=== PATIENT | male | born 1955 | race African-American/Black ===

== ENCOUNTER 2017-06-19 09:53 | Inpatient (IN) | payer MEDICARE, OTHER ==
[2017-06-19] MEDS: SOD CHLORIDE 0.9% 1,000 ML IV ×2 (11:29→20:09)
[2017-06-19 11:50] LABS: ADD MAN DIFF? NO
[2017-06-19] MEDS: hydrALAzine 20 MG INJ IV (12:12)
[2017-06-19] MEDS: NICARDipine HCL 30 MG CAPSULE PO (12:13)
[2017-06-19 12:16] LABS: WHITE BLOOD COUNT 6.3 10^3/ul (4.8-10.8)
[2017-06-19 12:16] LABS: ALANINE AMINOTRANSFERASE 58 IU/L (13-69); ALBUMIN 4.6 g/dl (3.3-4.9); ALBUMIN/GLOBULIN RATIO 1.35; ALKALINE PHOSPHATASE 88 IU/L (42-121); ANION GAP 17 (8-16); ASPARTATE AMINO TRANSFERASE 65 IU/L (15-46); BASOPHILS % 0.5 % (0.0-2.0); BILIRUBIN,INDIRECT 0.8 mg/dl (0-1.1); BILIRUBIN,TOTAL 0.8 mg/dl (0.2-1.3); BLOOD UREA NITROGEN 16 mg/dl (7-20); CALCIUM 9.3 mg/dl (8.4-10.2); CARBON DIOXIDE 25 mmol/L (21-31); CHLORIDE 107 mmol/L (97-110); CREATININE 1.68 mg/dl (0.61-1.24); EOSINOPHILS # 0.2 10^3/ul (0.0-0.5); GLUCOSE 91 mg/dl (70-220); HEMATOCRIT 45.3 % (42.0-52.0); HEMOGLOBIN 14.9 g/dl (14.0-18.0); LYMPHOCYTES % 16.6 % (15.0-51.0); MEAN CORPUSCULAR HEMOGLOBIN 24.8 pg (29.0-33.0); MEAN CORPUSCULAR HGB CONC 32.9 g/dl (32.0-37.0); MEAN CORPUSCULAR VOLUME 75.2 fl (82.0-101.0); MEAN PLATELET VOLUME 10.2 fl (7.4-10.4); MONOCYTE # 0.7 10^3/ul (0.3-0.9); MONOCYTES % 10.9 % (0.0-11.0); NEUTROPHIL # 4.3 10^3/ul (1.6-7.5); NEUTROPHILS % 68.7 % (39.0-77.0); PLATELET COUNT 241 10^3/UL (140-415); RED BLOOD COUNT 6.02 10^6/ul (4.70-6.10); RED CELL DISTRIBUTION WIDTH 17.9 % (11.5-14.5); SODIUM 145 mmol/L (135-144)
[2017-06-19 12:26] LABS: TROPONIN-I 0.065 ng/ml (0.00-0.12)
[2017-06-19 12:39] LABS: PROTIME 14.4 Sec (11.9-14.9); PT RATIO 1.1
[2017-06-19 12:40] LABS: PARTIAL THROMBOPLASTIN TIME 36.8 Sec (25.0-35.0)
[2017-06-19] MEDS ORDERED: ACETAMINOPHEN 325 MG TAB PO ×2 (13:30→14:00)
[2017-06-19] MEDS ORDERED: ONDANSETRON 4 MG INJ IV (13:30)
[2017-06-19] MEDS: DILTIAZEM-D5W 125MG/125ML DRIP 125 ML IV (13:57)
[2017-06-19 14:49] LABS: HEMOGLOBIN A1C 5.6 % (0-5.9)
[2017-06-19 15:01] LABS: CREATINE KINASE 395 IU/L (23-200)
[2017-06-19 15:02] LABS: ALANINE AMINOTRANSFERASE 59 IU/L (13-69); ALBUMIN 3.4 g/dl (3.3-4.9); ALKALINE PHOSPHATASE 67 IU/L (42-121); ASPARTATE AMINO TRANSFERASE 49 IU/L (15-46); BILIRUBIN,INDIRECT 0.7 mg/dl (0-1.1); BILIRUBIN,TOTAL 0.7 mg/dl (0.2-1.3); CHOL/HDL RATIO 2.6 RATIO; CHOLESTEROL 116 mg/dl (100-200); HDL CHOLESTEROL 44 mg/dl (30-78); LDL CHOLESTEROL,CALCULATED 57 mg/dl; MAGNESIUM 1.9 mg/dl (1.7-2.5); TOTAL PROTEIN 6.3 g/dl (6.1-8.1); TRIGLYCERIDES 73 mg/dl (0-149)
[2017-06-19 15:13] LABS: CK-MB 4.06 ng/ml (0.0-2.4); TROPONIN-I 0.057 ng/ml (0.00-0.12)
[2017-06-19 15:32] LABS: THYROID STIMULATING HORMONE 0.113 MIU/L (0.465-4.680)
[2017-06-19] MEDS: DOCUSATE SODIUM 100 MG CAP PO (17:02)
[2017-06-19] MEDS: LISINOPRIL 20 MG TAB PO (17:03)
[2017-06-19] MEDS: METOPROLOL 25 MG TAB PO ×2 (17:11→21:59)
[2017-06-19 17:48] LABS: AADO2 Arterial 46.4 mmHg (7.0-24.0); Allen Test ACCEPTAB; Arterial Blood Gas Oxygen Sat 96.5 mmHG (95.0-98.0); Arterial COHb 1.1 % (0.0-3.0); Arterial Fraction of Oxyhgb 95.1 % (93.0-99.0); Arterial HCO3 20.2 mmol/L (22.0-26.0); Arterial MetHb 0.3 % (0.0-1.5); Arterial Total Hemglobin 14.8 g/dl (12.0-18.0); Arterial pCO2 28.2 mmhg (35-45); MODE ROOM AIR; Site Right Radial
[2017-06-19 19:02] LABS: ADD UMIC YES; UR ASCORBIC ACID NEGATIVE (NEGATIVE); UR BACTERIA FEW /HPF (NONE SEEN); UR BILIRUBIN (Dip) NEGATIVE (NEGATIVE); UR BLOOD (Dip) NEGATIVE (NEGATIVE); UR CLARITY CLEAR (CLEAR); UR COLOR YELLOW (YELLOW); UR GLUCOSE (Dip) 2+ mg/dL (NEGATIVE); UR KETONES (Dip) TRACE mg/dL (NEGATIVE); UR LEUKOCYTE ESTERASE (Dip) TRACE Leu/ul (NEGATIVE); UR NITRITE (Dip) NEGATIVE (NEGATIVE); UR RBC 1 /HPF (0-5); UR SPECIFIC GRAVITY (Dip) 1.015 (1.003-1.030); UR TOTAL PROTEIN (Dip) NEGATIVE (NEGATIVE); UR UROBILINOGEN (Dip) 2+ mg/dL (NEGATIVE); UR WBC 6 /HPF (0-5)
[2017-06-19 19:24] LABS: BENZODIAZEPINES Positive (NEGATIVE)
[2017-06-19 19:30] LABS: AMPHETAMINE/METHAMPHETAMINE Negative (NEGATIVE); BARBITURATES Negative (NEGATIVE); CANNABINOIDS Positive (NEGATIVE); COCAINE Positive (NEGATIVE); OPIATES Negative (NEGATIVE)
[2017-06-19] MEDS: HYDROCODONE/APAP (5/325) TAB PO (20:08)
[2017-06-19 21:49] LABS: CREATINE KINASE 434 IU/L (23-200)
[2017-06-19] MEDS: FAMOTIDINE 20 MG INJ IV (21:58)
[2017-06-19] MEDS: ATORVASTATIN 40 MG TAB PO (21:59)
[2017-06-19 22:03] LABS: CK INDEX 0.9; TROPONIN-I 0.055 ng/ml (0.00-0.12)
[2017-06-19 22:05] LABS: CK-MB 3.94 ng/ml (0.0-2.4)
[2017-06-20] MEDS: HYDROCODONE/APAP (5/325) TAB PO ×2 (01:32→22:02)
[2017-06-20] MEDS: DOCUSATE SODIUM 100 MG CAP PO ×2 (01:32→21:17)
[2017-06-20] MEDS: DILTIAZEM-D5W 125MG/125ML DRIP 125 ML IV (03:55)
[2017-06-20 06:33] LABS: ADD MAN DIFF? NO
[2017-06-20 06:43] LABS: WHITE BLOOD COUNT 9.1 10^3/ul (4.8-10.8)
[2017-06-20 06:43] LABS: BASOPHILS % 0.3 % (0.0-2.0); EOSINOPHILS # 0.5 10^3/ul (0.0-0.5); EOSINOPHILS % 5.1 % (0.0-7.0); HEMATOCRIT 40.2 % (42.0-52.0); LYMPHOCYTES # 1.4 10^3/ul (0.8-2.9); LYMPHOCYTES % 14.9 % (15.0-51.0); MEAN CORPUSCULAR HEMOGLOBIN 24.3 pg (29.0-33.0); MEAN CORPUSCULAR HGB CONC 32.3 g/dl (32.0-37.0); MEAN PLATELET VOLUME 10.7 fl (7.4-10.4); MONOCYTE # 1.4 10^3/ul (0.3-0.9); MONOCYTES % 15.6 % (0.0-11.0); NEUTROPHIL # 5.7 10^3/ul (1.6-7.5); NEUTROPHILS % 63.3 % (39.0-77.0); PLATELET COUNT 239 10^3/UL (140-415); RED BLOOD COUNT 5.36 10^6/ul (4.70-6.10); RED CELL DISTRIBUTION WIDTH 17.2 % (11.5-14.5)
[2017-06-20 07:06] LABS: ANION GAP 16 (8-16); BLOOD UREA NITROGEN 14 mg/dl (7-20); CALCIUM 8.7 mg/dl (8.4-10.2); CARBON DIOXIDE 21 mmol/L (21-31); CHLORIDE 110 mmol/L (97-110); CREATININE 1.31 mg/dl (0.61-1.24); GLUCOSE 118 mg/dl (70-220); SODIUM 143 mmol/L (135-144)
[2017-06-20 07:08] LABS: MAGNESIUM 1.9 mg/dl (1.7-2.5)
[2017-06-20] MEDS: FAMOTIDINE 20 MG INJ IV ×2 (11:35→21:46)
[2017-06-20] MEDS: ENOXAPARIN 40 MG/0.4 ML SYG SC (11:35)
[2017-06-20] MEDS ORDERED: DILTIAZEM 25 MG INJ IV (14:00)
[2017-06-20 17:13] LABS: FREE T4 (FREE THYROXINE) 2.11 ng/dl (0.78-2.44)
[2017-06-20] MEDS: hydrALAzine 20 MG INJ IV (17:41)
[2017-06-20] MEDS: ATORVASTATIN 40 MG TAB PO (21:00)
[2017-06-20] MEDS: METOPROLOL 25 MG TAB PO ×2 (21:00→21:17)
[2017-06-20] MEDS: ASPIRIN 325 MG TAB PO (21:16)
[2017-06-20] MEDS: LISINOPRIL 20 MG TAB PO (21:17)
[2017-06-20] MEDS: ONDANSETRON 4 MG INJ IV (21:46)
[2017-06-21] MEDS: DOCUSATE SODIUM 100 MG CAP PO ×2 (04:57→13:26)
[2017-06-21] MEDS: FAMOTIDINE 20 MG INJ IV ×2 (08:43→22:36)
[2017-06-21] MEDS: FUROSEMIDE 20 MG INJ IV (08:44)
[2017-06-21] MEDS: METOPROLOL 25 MG TAB PO (08:44)
[2017-06-21] MEDS: ASPIRIN 325 MG TAB PO (08:44)
[2017-06-21] MEDS: HYDROCODONE/APAP (5/325) TAB PO (08:44)
[2017-06-21] MEDS: ENOXAPARIN 40 MG/0.4 ML SYG SC (08:45)
[2017-06-21] MEDS: LISINOPRIL 20 MG TAB PO (09:19)
[2017-06-21] MEDS: LORAZEPAM 2 MG INJ IV (21:39)
[2017-06-21] MEDS: ATORVASTATIN 40 MG TAB PO (22:36)
[2017-06-21] MEDS: DILTIAZEM 30 MG TAB PO (22:37)
[2017-06-21] MEDS: hydrALAzine 20 MG INJ IV (22:43)
[2017-06-21] MEDS: ENOXAPARIN 100 MG/ML SYG SC (22:51)
[2017-06-22] MEDS: DOCUSATE SODIUM 100 MG CAP PO ×2 (03:00→13:19)
[2017-06-22 08:12] LABS: ADD MAN DIFF? NO
[2017-06-22 08:15] LABS: BASOPHILS % 0.7 % (0.0-2.0); EOSINOPHILS # 0.4 10^3/ul (0.0-0.5); EOSINOPHILS % 6.2 % (0.0-7.0); HEMATOCRIT 36.8 % (42.0-52.0); HEMOGLOBIN 12.1 g/dl (14.0-18.0); LYMPHOCYTES % 16.6 % (15.0-51.0); MEAN CORPUSCULAR HEMOGLOBIN 24.6 pg (29.0-33.0); MEAN CORPUSCULAR HGB CONC 32.9 g/dl (32.0-37.0); MEAN CORPUSCULAR VOLUME 74.8 fl (82.0-101.0); MEAN PLATELET VOLUME 10.4 fl (7.4-10.4); MONOCYTE # 0.9 10^3/ul (0.3-0.9); MONOCYTES % 15.2 % (0.0-11.0); NEUTROPHIL # 3.6 10^3/ul (1.6-7.5); NEUTROPHILS % 60.8 % (39.0-77.0); PLATELET COUNT 211 10^3/UL (140-415); RED BLOOD COUNT 4.92 10^6/ul (4.70-6.10); RED CELL DISTRIBUTION WIDTH 16.3 % (11.5-14.5)
[2017-06-22 08:41] LABS: ANION GAP 11 (8-16); BLOOD UREA NITROGEN 16 mg/dl (7-20); CALCIUM 8.3 mg/dl (8.4-10.2); CARBON DIOXIDE 26 mmol/L (21-31); CHLORIDE 108 mmol/L (97-110); CREATININE 1.43 mg/dl (0.61-1.24); GLUCOSE 88 mg/dl (70-220); MAGNESIUM 1.9 mg/dl (1.7-2.5); POTASSIUM 3.7 mmol/L (3.5-5.1); SODIUM 141 mmol/L (135-144)
[2017-06-22] MEDS: LISINOPRIL 20 MG TAB PO (09:26)
[2017-06-22] MEDS: FUROSEMIDE 20 MG INJ IV (09:27)
[2017-06-22] MEDS: DILTIAZEM 30 MG TAB PO ×3 (09:27→21:02)
[2017-06-22] MEDS: FAMOTIDINE 20 MG INJ IV ×2 (09:27→21:00)
[2017-06-22] MEDS: HYDROCODONE/APAP (5/325) TAB PO ×2 (09:31→18:01)
[2017-06-22 09:49] LABS: CREATINE KINASE 231 IU/L (23-200)
[2017-06-22] MEDS: hydrALAzine 20 MG INJ IV (13:20)
[2017-06-22] MEDS: ATORVASTATIN 40 MG TAB PO (21:02)
[2017-06-23] MEDS: DOCUSATE SODIUM 100 MG CAP PO ×2 (01:15→14:54)
[2017-06-23] MEDS: ZOLPIDEM 5 MG TAB PO ×2 (01:15→22:33)
[2017-06-23] MEDS: FAMOTIDINE 20 MG INJ IV ×2 (08:17→20:52)
[2017-06-23] MEDS: FUROSEMIDE 20 MG INJ IV (08:17)
[2017-06-23] MEDS: DILTIAZEM 30 MG TAB PO ×3 (08:18→20:53)
[2017-06-23] MEDS: LISINOPRIL 20 MG TAB PO (08:19)
[2017-06-23 08:59] LABS: ADD MAN DIFF? NO
[2017-06-23 09:05] LABS: BASOPHILS % 0.7 % (0.0-2.0); EOSINOPHILS # 0.5 10^3/ul (0.0-0.5); EOSINOPHILS % 7.5 % (0.0-7.0); HEMATOCRIT 38.1 % (42.0-52.0); HEMOGLOBIN 12.8 g/dl (14.0-18.0); LYMPHOCYTES # 1.1 10^3/ul (0.8-2.9); LYMPHOCYTES % 17.3 % (15.0-51.0); MEAN CORPUSCULAR HEMOGLOBIN 24.6 pg (29.0-33.0); MEAN CORPUSCULAR HGB CONC 33.6 g/dl (32.0-37.0); MEAN CORPUSCULAR VOLUME 73.1 fl (82.0-101.0); MEAN PLATELET VOLUME 10.4 fl (7.4-10.4); MONOCYTE # 0.9 10^3/ul (0.3-0.9); NEUTROPHIL # 3.6 10^3/ul (1.6-7.5); PLATELET COUNT 236 10^3/UL (140-415); RED BLOOD COUNT 5.21 10^6/ul (4.70-6.10); RED CELL DISTRIBUTION WIDTH 15.8 % (11.5-14.5)
[2017-06-23 09:05] LABS: WHITE BLOOD COUNT 6.1 10^3/ul (4.8-10.8)
[2017-06-23 09:25] LABS: ANION GAP 9 (8-16); BLOOD UREA NITROGEN 13 mg/dl (7-20); CALCIUM 8.3 mg/dl (8.4-10.2); CARBON DIOXIDE 27 mmol/L (21-31); CHLORIDE 107 mmol/L (97-110); CREATININE 1.35 mg/dl (0.61-1.24); GLUCOSE 82 mg/dl (70-220); POTASSIUM 3.5 mmol/L (3.5-5.1); SODIUM 139 mmol/L (135-144)
[2017-06-23] MEDS: HYDROCODONE/APAP (5/325) TAB PO ×2 (10:30→18:11)
[2017-06-23] MEDS: ATORVASTATIN 40 MG TAB PO (20:52)
[2017-06-24] MEDS: DOCUSATE SODIUM 100 MG CAP PO ×2 (02:00→13:55)
[2017-06-24] MEDS: FAMOTIDINE 20 MG INJ IV ×2 (08:40→21:26)
[2017-06-24] MEDS: LISINOPRIL 20 MG TAB PO (08:41)
[2017-06-24] MEDS: FUROSEMIDE 20 MG INJ IV ×2 (08:41→21:28)
[2017-06-24] MEDS: DILTIAZEM 30 MG TAB PO ×3 (08:41→21:26)
[2017-06-24 09:00] LABS: ADD MAN DIFF? NO
[2017-06-24 09:05] LABS: BASOPHILS % 0.4 % (0.0-2.0); EOSINOPHILS # 0.4 10^3/ul (0.0-0.5); EOSINOPHILS % 5.7 % (0.0-7.0); HEMOGLOBIN 13.3 g/dl (14.0-18.0); LYMPHOCYTES # 1.1 10^3/ul (0.8-2.9); LYMPHOCYTES % 15.3 % (15.0-51.0); MEAN CORPUSCULAR HEMOGLOBIN 24.1 pg (29.0-33.0); MEAN CORPUSCULAR HGB CONC 33.3 g/dl (32.0-37.0); MEAN CORPUSCULAR VOLUME 72.6 fl (82.0-101.0); MEAN PLATELET VOLUME 10.1 fl (7.4-10.4); MONOCYTE # 0.9 10^3/ul (0.3-0.9); MONOCYTES % 12.7 % (0.0-11.0); NEUTROPHIL # 4.7 10^3/ul (1.6-7.5); NEUTROPHILS % 65.2 % (39.0-77.0); PLATELET COUNT 232 10^3/UL (140-415); RED BLOOD COUNT 5.51 10^6/ul (4.70-6.10); RED CELL DISTRIBUTION WIDTH 15.4 % (11.5-14.5)
[2017-06-24 09:05] LABS: WHITE BLOOD COUNT 7.2 10^3/ul (4.8-10.8)
[2017-06-24 09:22] LABS: ANION GAP 11 (8-16); BLOOD UREA NITROGEN 14 mg/dl (7-20); CALCIUM 8.4 mg/dl (8.4-10.2); CARBON DIOXIDE 27 mmol/L (21-31); CHLORIDE 105 mmol/L (97-110); CREATININE 1.41 mg/dl (0.61-1.24); GLUCOSE 138 mg/dl (70-220); POTASSIUM 3.6 mmol/L (3.5-5.1); SODIUM 139 mmol/L (135-144)
[2017-06-24] MEDS: HYDROCODONE/APAP (5/325) TAB PO ×2 (09:24→21:32)
[2017-06-24] MEDS: SILDENAFIL 20 MG TAB PO ×2 (13:55→21:24)
[2017-06-24] MEDS: ATORVASTATIN 40 MG TAB PO (21:26)
[2017-06-25] MEDS: DOCUSATE SODIUM 100 MG CAP PO ×2 (02:00→13:25)
[2017-06-25] MEDS: FUROSEMIDE 20 MG INJ IV ×2 (05:39→18:19)
[2017-06-25 07:52] LABS: ADD MAN DIFF? NO
[2017-06-25 08:02] LABS: BASOPHILS % 0.6 % (0.0-2.0); EOSINOPHILS # 0.4 10^3/ul (0.0-0.5); EOSINOPHILS % 5.3 % (0.0-7.0); HEMATOCRIT 41.6 % (42.0-52.0); HEMOGLOBIN 13.6 g/dl (14.0-18.0); LYMPHOCYTES # 1.4 10^3/ul (0.8-2.9); LYMPHOCYTES % 19.4 % (15.0-51.0); MEAN CORPUSCULAR HEMOGLOBIN 23.9 pg (29.0-33.0); MEAN CORPUSCULAR HGB CONC 32.7 g/dl (32.0-37.0); MEAN CORPUSCULAR VOLUME 73.1 fl (82.0-101.0); MEAN PLATELET VOLUME 10.5 fl (7.4-10.4); MONOCYTES % 14.3 % (0.0-11.0); NEUTROPHIL # 4.2 10^3/ul (1.6-7.5); NEUTROPHILS % 59.7 % (39.0-77.0); PLATELET COUNT 232 10^3/UL (140-415); RED BLOOD COUNT 5.69 10^6/ul (4.70-6.10); RED CELL DISTRIBUTION WIDTH 15.1 % (11.5-14.5)
[2017-06-25 08:24] LABS: ANION GAP 15 (8-16); BLOOD UREA NITROGEN 16 mg/dl (7-20); CALCIUM 8.8 mg/dl (8.4-10.2); CARBON DIOXIDE 27 mmol/L (21-31); CHLORIDE 103 mmol/L (97-110); CREATININE 1.47 mg/dl (0.61-1.24); GLUCOSE 85 mg/dl (70-220); POTASSIUM 3.7 mmol/L (3.5-5.1); SODIUM 141 mmol/L (135-144)
[2017-06-25] MEDS: LISINOPRIL 20 MG TAB PO (09:19)
[2017-06-25] MEDS: SILDENAFIL 20 MG TAB PO ×3 (09:19→21:02)
[2017-06-25] MEDS: FAMOTIDINE 20 MG INJ IV ×2 (09:20→21:15)
[2017-06-25] MEDS: DILTIAZEM 30 MG TAB PO ×3 (09:20→21:02)
[2017-06-25] MEDS: ATORVASTATIN 40 MG TAB PO (21:02)
[2017-06-25] MEDS: AMOXICILLIN/CLAV 875 MG TAB PO (21:02)
[2017-06-25] MEDS: HYDROCODONE/APAP (5/325) TAB PO (21:08)
== END 2017-06-25 21:42 | DRG 64 ==
LOC: MS4 06-21 13:23 → E/R 09:53
PROC: 4A033R1 Measurement of Arterial Saturation, Peripheral, Percutaneous Approach (ICD-10-PCS; principal; 2017-06-19)
DX: I63.9 Cerebral infarction, unspecified (principal); I61.8 Other nontraumatic intracerebral hemorrhage; I50.23 Acute on chronic systolic (congestive) heart failure; N17.9 Acute kidney failure, unspecified; I42.8 Other cardiomyopathies; R13.12 Dysphagia, oropharyngeal phase; G81.94 Hemiplegia, unspecified affecting left nondominant side; I27.20 Pulmonary hypertension, unspecified; I13.0 Hypertensive heart and chronic kidney disease with heart failure and stage 1 through stage 4 chronic kidney disease, or unspecified chronic kidney disease; N39.0 Urinary tract infection, site not specified; F17.200 Nicotine dependence, unspecified, uncomplicated; N18.9 Chronic kidney disease, unspecified; I48.2 Chronic atrial fibrillation; E78.5 Hyperlipidemia, unspecified; F14.129 Cocaine abuse with intoxication, unspecified; I16.0 Hypertensive urgency; R29.810 Facial weakness; F12.10 Cannabis abuse, uncomplicated; I08.3 Combined rheumatic disorders of mitral, aortic and tricuspid valves; W06.XXXA Fall from bed, initial encounter; Y92.230 Patient room in hospital as the place of occurrence of the external cause
CPT/HCPCS: 36415; 36600; 70450; 71045; 74176; 80048; 80053; 80061; 80076; 80307; 81001; 82550; 82553; 82803; 83036; 83735; 84439; 84443; 84484; 85025; 85610; 85730; 87081; 87086; 92507; 92523; 92610; 93005; 93306; 93880; 96361; 96365; 96366; 96372; 96375; 96376; 97110; 97162; 97165; 97530; 99285-25; J1940

== ENCOUNTER 2017-06-25 21:50 | Inpatient (IN) | payer MEDICARE, OTHER ==
[2017-06-26] MEDS ORDERED: ACETAMINOPHEN 325 MG TAB PO (00:30)
[2017-06-26 00:56] LABS: ADD UMIC YES; UR AMORPHOUS CRYSTAL FEW /HPF (NONE SEEN); UR ASCORBIC ACID 20 mg/dL (NEGATIVE); UR BILIRUBIN (Dip) NEGATIVE (NEGATIVE); UR BLOOD (Dip) NEGATIVE (NEGATIVE); UR CLARITY SLIGHTLY CLOUDY (CLEAR); UR COLOR YELLOW (YELLOW); UR GLUCOSE (Dip) NEGATIVE (NEGATIVE); UR KETONES (Dip) NEGATIVE (NEGATIVE); UR LEUKOCYTE ESTERASE (Dip) TRACE Leu/ul (NEGATIVE); UR NITRITE (Dip) NEGATIVE (NEGATIVE); UR RBC 1 /HPF (0-5); UR SPECIFIC GRAVITY (Dip) 1.016 (1.003-1.030); UR TOTAL PROTEIN (Dip) 1+ mg/dl (NEGATIVE); UR UROBILINOGEN (Dip) 2+ mg/dL (NEGATIVE); UR WBC 6 /HPF (0-5)
[2017-06-26] MEDS ORDERED: BISACODYL 10 MG SUPP PR (05:00)
[2017-06-26] MEDS ORDERED: MAGNESIUM HYDROXIDE 30ML CUP PO (05:00)
[2017-06-26] MEDS ORDERED: LACTULOSE 30ML CUP PO (05:00)
[2017-06-26] MEDS: DILTIAZEM 30 MG TAB PO ×3 (06:37→21:58)
[2017-06-26] MEDS: SILDENAFIL 20 MG TAB PO ×3 (06:38→21:58)
[2017-06-26] MEDS: FUROSEMIDE 20 MG INJ IV ×2 (06:38→17:46)
[2017-06-26 08:57] LABS: ADD MAN DIFF? NO
[2017-06-26] MEDS: METOPROLOL 25 MG TAB PO ×2 (08:57→20:34)
[2017-06-26] MEDS: LISINOPRIL 20 MG TAB PO (08:58)
[2017-06-26] MEDS: DOCUSATE SODIUM 100 MG CAP PO ×2 (08:58→20:35)
[2017-06-26] MEDS: AMOXICILLIN/CLAV 875 MG TAB PO ×2 (09:00→20:32)
[2017-06-26 09:06] LABS: WHITE BLOOD COUNT 5.9 10^3/ul (4.8-10.8)
[2017-06-26 09:06] LABS: BASOPHILS % 0.7 % (0.0-2.0); EOSINOPHILS # 0.4 10^3/ul (0.0-0.5); EOSINOPHILS % 6.9 % (0.0-7.0); HEMATOCRIT 44.2 % (42.0-52.0); HEMOGLOBIN 14.7 g/dl (14.0-18.0); LYMPHOCYTES # 1.2 10^3/ul (0.8-2.9); LYMPHOCYTES % 20.2 % (15.0-51.0); MEAN CORPUSCULAR HEMOGLOBIN 24.3 pg (29.0-33.0); MEAN CORPUSCULAR HGB CONC 33.3 g/dl (32.0-37.0); MEAN CORPUSCULAR VOLUME 73.2 fl (82.0-101.0); MEAN PLATELET VOLUME 10.3 fl (7.4-10.4); MONOCYTE # 0.9 10^3/ul (0.3-0.9); MONOCYTES % 14.6 % (0.0-11.0); NEUTROPHIL # 3.4 10^3/ul (1.6-7.5); NEUTROPHILS % 56.9 % (39.0-77.0); PLATELET COUNT 237 10^3/UL (140-415); RED BLOOD COUNT 6.04 10^6/ul (4.70-6.10); RED CELL DISTRIBUTION WIDTH 15.1 % (11.5-14.5)
[2017-06-26] MEDS: HYDROCODONE/APAP (5/325) TAB PO ×2 (09:07→22:00)
[2017-06-26 10:00] LABS: ALANINE AMINOTRANSFERASE 37 IU/L (13-69); ALBUMIN 3.9 g/dl (3.3-4.9); ALBUMIN/GLOBULIN RATIO 1.05; ALKALINE PHOSPHATASE 81 IU/L (42-121); ANION GAP 18 (8-16); ASPARTATE AMINO TRANSFERASE 47 IU/L (15-46); BILIRUBIN,INDIRECT 0.5 mg/dl (0-1.1); BILIRUBIN,TOTAL 0.5 mg/dl (0.2-1.3); BLOOD UREA NITROGEN 15 mg/dl (7-20); CALCIUM 9.1 mg/dl (8.4-10.2); CARBON DIOXIDE 25 mmol/L (21-31); CHLORIDE 102 mmol/L (97-110); CREATININE 1.52 mg/dl (0.61-1.24); GLUCOSE 83 mg/dl (70-220); POTASSIUM 3.8 mmol/L (3.5-5.1); SODIUM 141 mmol/L (135-144); TOTAL PROTEIN 7.6 g/dl (6.1-8.1)
[2017-06-26] MEDS: ATORVASTATIN 40 MG TAB PO (20:33)
[2017-06-27] MEDS: FUROSEMIDE 20 MG INJ IV ×2 (06:33→17:33)
[2017-06-27] MEDS: DILTIAZEM 30 MG TAB PO ×3 (06:34→21:06)
[2017-06-27] MEDS: SILDENAFIL 20 MG TAB PO ×3 (06:34→21:06)
[2017-06-27] MEDS: LISINOPRIL 20 MG TAB PO (09:29)
[2017-06-27] MEDS: AMOXICILLIN/CLAV 875 MG TAB PO ×2 (09:30→21:01)
[2017-06-27] MEDS: DOCUSATE SODIUM 100 MG CAP PO ×2 (09:30→21:00)
[2017-06-27] MEDS: METOPROLOL 25 MG TAB PO ×2 (09:30→21:01)
[2017-06-27] MEDS: HYDROCODONE/APAP (5/325) TAB PO ×2 (09:37→21:05)
[2017-06-27] MEDS: ATORVASTATIN 40 MG TAB PO (21:00)
[2017-06-28] MEDS: HYDROCODONE/APAP (5/325) TAB PO ×2 (03:16→19:50)
[2017-06-28] MEDS: DILTIAZEM 30 MG TAB PO (06:00)
[2017-06-28] MEDS: SILDENAFIL 20 MG TAB PO ×3 (06:00→23:04)
[2017-06-28] MEDS: FUROSEMIDE 20 MG INJ IV ×2 (06:00→18:45)
[2017-06-28] MEDS: DOCUSATE SODIUM 100 MG CAP PO ×2 (09:00→21:43)
[2017-06-28] MEDS: LISINOPRIL 20 MG TAB PO (10:18)
[2017-06-28] MEDS: METOPROLOL 25 MG TAB PO ×2 (10:19→21:42)
[2017-06-28] MEDS: AMOXICILLIN/CLAV 875 MG TAB PO ×2 (10:19→23:01)
[2017-06-28] MEDS: ATORVASTATIN 40 MG TAB PO (21:42)
[2017-06-29] MEDS: HYDROCODONE/APAP (5/325) TAB PO ×2 (02:22→21:18)
[2017-06-29] MEDS: FUROSEMIDE 20 MG INJ IV ×2 (06:00→17:58)
[2017-06-29] MEDS: SILDENAFIL 20 MG TAB PO ×3 (06:00→21:14)
[2017-06-29] MEDS: AMOXICILLIN/CLAV 875 MG TAB PO ×2 (08:38→21:14)
[2017-06-29] MEDS: DOCUSATE SODIUM 100 MG CAP PO ×2 (08:38→21:14)
[2017-06-29] MEDS: METOPROLOL 25 MG TAB PO ×2 (08:39→21:15)
[2017-06-29] MEDS: LISINOPRIL 20 MG TAB PO (08:40)
[2017-06-29] MEDS: ATORVASTATIN 40 MG TAB PO (21:14)
[2017-06-30] MEDS: HYDROCODONE/APAP (5/325) TAB PO ×3 (05:51→21:31)
[2017-06-30] MEDS: SILDENAFIL 20 MG TAB PO ×3 (05:52→21:33)
[2017-06-30] MEDS: FUROSEMIDE 20 MG INJ IV ×2 (05:53→18:33)
[2017-06-30 07:47] LABS: ADD MAN DIFF? NO
[2017-06-30 07:50] LABS: WHITE BLOOD COUNT 5.1 10^3/ul (4.8-10.8)
[2017-06-30 07:50] LABS: BASOPHIL # 0.1 10^3/ul (0.0-0.1); EOSINOPHILS # 0.3 10^3/ul (0.0-0.5); EOSINOPHILS % 5.9 % (0.0-7.0); HEMATOCRIT 45.9 % (42.0-52.0); HEMOGLOBIN 15.1 g/dl (14.0-18.0); LYMPHOCYTES # 1.7 10^3/ul (0.8-2.9); LYMPHOCYTES % 33.8 % (15.0-51.0); MEAN CORPUSCULAR HGB CONC 32.9 g/dl (32.0-37.0); MEAN CORPUSCULAR VOLUME 73.1 fl (82.0-101.0); MEAN PLATELET VOLUME 9.4 fl (7.4-10.4); MONOCYTE # 0.7 10^3/ul (0.3-0.9); MONOCYTES % 13.2 % (0.0-11.0); NEUTROPHIL # 2.3 10^3/ul (1.6-7.5); NEUTROPHILS % 45.7 % (39.0-77.0); PLATELET COUNT 264 10^3/UL (140-415); RED BLOOD COUNT 6.28 10^6/ul (4.70-6.10); RED CELL DISTRIBUTION WIDTH 15.5 % (11.5-14.5)
[2017-06-30 08:15] LABS: ANION GAP 18 (8-16); BLOOD UREA NITROGEN 25 mg/dl (7-20); CALCIUM 9.2 mg/dl (8.4-10.2); CARBON DIOXIDE 26 mmol/L (21-31); CHLORIDE 103 mmol/L (97-110); CREATININE 1.45 mg/dl (0.61-1.24); GLUCOSE 103 mg/dl (70-220); POTASSIUM 3.8 mmol/L (3.5-5.1); SODIUM 143 mmol/L (135-144)
[2017-06-30] MEDS: METOPROLOL 25 MG TAB PO ×2 (08:31→21:33)
[2017-06-30] MEDS: DOCUSATE SODIUM 100 MG CAP PO ×2 (08:31→21:00)
[2017-06-30] MEDS: AMOXICILLIN/CLAV 875 MG TAB PO ×2 (08:31→21:21)
[2017-06-30] MEDS: LISINOPRIL 20 MG TAB PO (08:32)
[2017-06-30] MEDS: ATORVASTATIN 40 MG TAB PO (21:21)
[2017-07-01] MEDS: SILDENAFIL 20 MG TAB PO ×2 (06:00→06:21)
[2017-07-01] MEDS: FUROSEMIDE 20 MG INJ IV (06:22)
[2017-07-01 07:50] LABS: ANION GAP 15 (8-16); BLOOD UREA NITROGEN 25 mg/dl (7-20); CARBON DIOXIDE 25 mmol/L (21-31); CHLORIDE 105 mmol/L (97-110); CREATININE 1.41 mg/dl (0.61-1.24); GLUCOSE 96 mg/dl (70-220); POTASSIUM 3.7 mmol/L (3.5-5.1); SODIUM 141 mmol/L (135-144)
[2017-07-01] MEDS: AMOXICILLIN/CLAV 875 MG TAB PO (08:28)
[2017-07-01] MEDS: DOCUSATE SODIUM 100 MG CAP PO (08:28)
[2017-07-01] MEDS: LISINOPRIL 20 MG TAB PO (08:28)
[2017-07-01] MEDS: METOPROLOL 25 MG TAB PO (08:31)
== END 2017-07-01 12:15 | disposition left against medical advice (07) | DRG 57 ==
LOC: VRC 21:50
PROC: F07Z5FZ Bed Mobility Treatment using Assistive, Adaptive, Supportive or Protective Equipment (ICD-10-PCS; principal; 2017-06-26)
PROC: F07Z8FZ Transfer Training Treatment using Assistive, Adaptive, Supportive or Protective Equipment (ICD-10-PCS; 2017-06-26)
PROC: F07Z9FZ Gait Training/Functional Ambulation Treatment using Assistive, Adaptive, Supportive or Protective Equipment (ICD-10-PCS; 2017-06-26)
PROC: F08Z2FZ Grooming/Personal Hygiene Treatment using Assistive, Adaptive, Supportive or Protective Equipment (ICD-10-PCS; 2017-06-26)
PROC: F08Z1FZ Dressing Techniques Treatment using Assistive, Adaptive, Supportive or Protective Equipment (ICD-10-PCS; 2017-06-26)
PROC: F08Z0FZ Bathing/Showering Techniques Treatment using Assistive, Adaptive, Supportive or Protective Equipment (ICD-10-PCS; 2017-06-26)
DX: I69.354 Hemiplegia and hemiparesis following cerebral infarction affecting left non-dominant side (principal); I42.9 Cardiomyopathy, unspecified; I13.0 Hypertensive heart and chronic kidney disease with heart failure and stage 1 through stage 4 chronic kidney disease, or unspecified chronic kidney disease; I50.22 Chronic systolic (congestive) heart failure; N39.0 Urinary tract infection, site not specified; I48.2 Chronic atrial fibrillation; N18.9 Chronic kidney disease, unspecified; E78.5 Hyperlipidemia, unspecified; I08.0 Rheumatic disorders of both mitral and aortic valves; I27.20 Pulmonary hypertension, unspecified; F17.210 Nicotine dependence, cigarettes, uncomplicated; F14.10 Cocaine abuse, uncomplicated; F12.10 Cannabis abuse, uncomplicated; F06.31 Mood disorder due to known physiological condition with depressive features; F01.50 Vascular dementia, unspecified severity, without behavioral disturbance, psychotic disturbance, mood disturbance, and anxiety
CPT/HCPCS: 80048; 80053; 81001; 85025; 87081; 87086; 92507; 92523; 92610; 97110; 97112; 97163; 97167; 97530; 97535; 97542; J1940